=== PATIENT | female | born 2000 | race Hispanic/Latino ===

== ENCOUNTER 2023-02-21 20:57 | Emergency (ER) | payer BC, OTHER ==
--- OUTSIDE RECORDS SUMMARY | 2023-02-21 21:01 | XMS REPORT | Continuity of Care Document ---
:2000 Author Organization [facility] t Address [address] [place] [address] [address] [place] [address] Care Team Providers Name Role Phone Sergey House Primary Care Physician Erna Camarillo Attending Clinician Unavailable Erna Camarillo Attending Clinician Unavailable Maureen Gleason MA Attending Clinician Unavailable Joseph Bueno MD Attending Clinician Letty García MA Attending Clinician Unavailable Kanchan Gonzalez MA Attending Clinician Unavailable SERGEY ROGERS Attending Clinician Unavailable Sergey House Attending Clinician RAJINDER SANCHEZ Attending Clinician Unavailable Mini Patel Attending Clinician Unavailable Erna Camarillo Admitting Clinician Unavailable Payers Payer Name Policy Type Policy Number Effective Date Expiration Date S ource Problems This patient has no known problems. Allergies, Adverse Reactions, Alerts Allergy Allergy Status Severity Reaction(s) Onset Inactive Treating Comm ents Source Name Type Date Date Clinician No Known DA Active U 2020-08 [facility] Drug 10-05 Allergie 00:00: s 00 No Known DA Active U [facility] Drug 09-04 Allergie 00:00: s 00 No Known Drug Active [facility] No Known Drug Active [facility] No Known Drug Active [facility] No Known Drug Active [facility] NO KNOWN Drug Active [facility] ALLERGIE Class ity of S [facility] Social History Social Habit Start Date Stop Date Quantity Comments Source Exposure to 2022-11-16 2022-11-26 Not sure [facility]-CoV-2 00:00:00 16:16:00 [facility] (event) [place] Alcohol intake 2022-11-26 2022-11-26 .14 /d [facility] 00:00:00 00:00:00 [facility] Tobacco use and 2022-10-23 2022-10-23 Smokeless tobacco Un iversity of exposure 00:00:00 00:00:00 non-user [facility] Sex Assigned At [birth year] Universit y of 00:00:00 00:00:00 [facility] Smoking Status Start Date Stop Date Source Never smoked tobacco [facility] Medications Ordered Filled Start Stop Current Ordering Indication Dosage Frequency Signature Comments Components Source Medication Medication Date Date Medication? Clinician (SIG) Name Name pantoprazol Yes [id number] 40mg Take 1 Univers e 40 mg EC 6-20 tablet by ity of tablet 00:00: mouth in [place] 00 the Medical morning. Branch pantoprazol 2022-0 Yes [id number] 40mg Take 1 Univers e 40 mg EC 6-20 tablet by ity of tablet 00:00: mouth in [place] 00 the Medical morning. Branch citalopram 2022-0 Yes [id number] 20mg Take 1 [facility] 20 mg 6-20 tablet by ity of tablet 00:00: mouth in [place] 00 the Medical morning. Branch citalopram 2022-0 Yes [id number] 20mg Take 1 [facility] 20 mg 5-25 tablet by ity of tablet 00:00: mouth in [place] 00 the Medical morning. Branch citalopram 2022-0 Yes [id number] 20mg Take 1 Univers 20 mg 5-25 tablet by ity of tablet 00:00: mouth in [place] 00 the Medical morning. Branch citalopram 2022-0 3- No [id number] 20mg Take 1 Univers 20 mg 5-25 06-20 tablet by ity of tablet 00:00: 00:00 mouth in [place] 00 :00 the Medical morning. Branch pantoprazol 2022-0 Yes [id number] 40mg Take 1 Univers e 40 mg EC 5-24 tablet by ity of tablet 00:00: mouth in [place] 00 the Medical morning. Branch pantoprazol 2022-0 3- No [id number] 40mg Take 1 Univers e 40 mg EC 5-24 06-19 tablet by ity of tablet 00:00: 00:00 mouth in [place] 00 :00 the Medical morning. Branch phentermine 2022-0 Yes [id number] 37.5mg Take 1 Univers 37.5 mg 4-20 capsule by ity of capsule 00:00: mouth [place] 00 every Medical morning. Branch citalopram 2022-0 Yes [id number] 20mg Take 1 [facility] 20 mg 4-20 tablet by ity of tablet 00:00: mouth in [place] 00 the Medical morning. Branch phentermine 3-0 Yes [id number] 37.5mg Take 1 Univers 37.5 mg 4-20 capsule by ity of capsule 00:00: mouth [place] 00 every Medical morning. Branch citalopram 2022-0 Yes [id number] 20mg Take 1 [facility] 20 mg 4-20 tablet by ity of tablet 00:00: mouth in [place] 00 the Medical morning. Branch phentermine Yes [id number] 37.5mg Take 1 Univers 37.5 mg 4-20 capsule by ity of capsule 00:00: mouth [place] 00 every Medical morning. Branch phentermine Yes [id number] 37.5mg Take 1 Univers 37.5 mg 4-20 capsule by ity of capsule 00:00: mouth [place] 00 every Medical morning. Branch phentermine Yes [id number] 37.5mg Take 1 Univers 37.5 mg 4-20 capsule by ity of capsule 00:00: mouth [place] 00 every Medical morning. Branch citalopram 2022- No [id number] 20mg Take 1 Univers 20 mg 4-20 05-23 tablet by ity of tablet 00:00: 00:00 mouth in [place] 00 :00 the Medical morning. Branch pantoprazol Yes [id number] 40mg Take 1 Univers e 40 mg EC 4-18 tablet by ity of tablet 00:00: mouth in [place] 00 the Medical morning. Branch pantoprazol Yes [id number] 40mg Take 1 Univers e 40 mg EC 4-18 tablet by ity of tablet 00:00: mouth in [place] 00 the Medical morning. Branch pantoprazol 2022- No [id number] 40mg Take 1 Univers e 40 mg EC 4-18 05-23 tablet by ity of tablet 00:00: 00:00 mouth in [place] 00 :00 the Medical morning. Branch etonogestre Yes 68mg 68 mg by Un justice L 68 mg 3-30 Subdermal [place]y [place] Medical Branch etonogestre Yes 68mg 68 mg by Un justice L 68 mg 3-30 Subdermal ity of [place] 16:22: [place]. Medical Branch etonogestre Yes 68mg 68 mg by Un justice L 68 mg 3-30 Subdermal ity of [place] 16:22: [place]. Medical Branch etonogestre Yes 68mg 68 mg by Un justice L 68 mg 3-30 Subdermal ity of [place] 16:22: [place]. Medical Branch etonogestre Yes 68mg 68 mg by Un justice L 68 mg 3-30 Subdermal ity of [place] 16:22: [place]. Medical Branch etonogestre Yes 68mg 68 mg by Un justice L 68 mg 3-30 Subdermal ity of [place] 16:22: [place]. Medical Branch etonogestre Yes 68mg 68 mg by Un justice L 68 mg 3-30 Subdermal ity of [place] 16:22: [place]. Medical Branch etonogestre Yes 68mg 68 mg by Un justice L 68 mg 3-30 Subdermal ity of [place] 16:22: [place] now. Medical Branch etonogestre Yes 68mg 68 mg by Un justice L 68 mg 3-30 Subdermal ity of [place] 16:22: [place] now. Medical Branch citalopram Yes [id number] 20mg Take 1 Univers 20 mg 3-30 tablet by ity of tablet 00:00: mouth in [place] 00 the Medical morning. Branch proMETHazin Yes [id number] 12.5mg Take 1 Univers e 12.5 mg 3-30 tablet by ity o f tablet 00:00: mouth [place] 00 every 6 Medical (six) Branch hours as needed for Nausea and Vomiting (N/V). citalopram Yes [id number] 20mg Take 1 Univers 20 mg 3-30 tablet by ity of tablet 00:00: mouth in [place] 00 the Medical morning. Branch proMETHazin 0 Yes [id number] 12.5mg Take 1 Univers e 12.5 mg 3-30 tablet by ity o f tablet 00:00: mouth [place] 00 every 6 Medical (six) Branch hours as needed for Nausea and Vomiting (N/V). citalopram Yes [id number] 20mg Take 1 Univers 20 mg 3-30 tablet by ity of tablet 00:00: mouth in [place] 00 the Medical morning. Branch proMETHazin Yes [id number] 12.5mg Take 1 Univers e 12.5 mg 3-30 tablet by ity o f tablet 00:00: mouth [place] 00 every 6 Medical (six) Branch hours as needed for Nausea and Vomiting (N/V). citalopram 2022-0 Yes [id number] 20mg Take 1 Univers 20 mg 3-30 tablet by ity of tablet 00:00: mouth in [place] 00 the Medical morning. Branch proMETHazin 2022-0 Yes [id number] 12.5mg Take 1 Univers e 12.5 mg 3-30 tablet by ity o f tablet 00:00: mouth [place] 00 every 6 Medical (six) Branch hours as needed for Nausea and Vomiting (N/V). proMETHazin 2022-0 Yes [id number] 12.5mg Take 1 Univers e 12.5 mg 3-30 tablet by ity o f tablet 00:00: mouth [place] 00 every 6 Medical (six) Branch hours as needed for Nausea and Vomiting (N/V). proMETHazin 2022-0 Yes [id number] 12.5mg Take 1 Univers e 12.5 mg 3-30 tablet by ity o f tablet 00:00: mouth [place] 00 every 6 Medical (six) Branch hours as needed for Nausea and Vomiting (N/V). proMETHazin 2022-0 Yes [id number] 12.5mg Take 1 Univers e 12.5 mg 3-30 tablet by ity o f tablet 00:00: mouth [place] 00 every 6 Medical (six) Branch hours as needed for Nausea and Vomiting (N/V). proMETHazin 2022-0 Yes [id number] 12.5mg Take 1 Univers e 12.5 mg 3-30 tablet by ity o f tablet 00:00: mouth [place] 00 every 6 Medical (six) Branch hours as needed for Nausea and Vomiting (N/V). proMETHazin 2022-0 Yes [id number] 12.5mg Take 1 Univers e 12.5 mg 3-30 tablet by ity o f tablet 00:00: mouth [place] 00 every 6 Medical (six) Branch hours as needed for Nausea and Vomiting (N/V). citalopram 2022-0 2022- No [id number] 20mg Take 1 Univers 20 mg 3-30 04-17 tablet by ity of tablet 00:00: 00:00 mouth in [place] 00 :00 the Medical morning. Branch proMETHazin 2022-0 2022- No [id number] 25mg Take 1 Univers e 25 mg 3-30 03-30 tablet by ity of tablet 00:00: 00:00 mouth [place] 00 :00 every 4 Medical (four) Branch hours as needed for Nausea and Vomiting (N/V). citalopram 2022- No [id number] 20mg Take 1 Univers 20 mg 3-30 03-30 tablet by ity of tablet 00:00: 00:00 mouth in [place] 00 :00 the Medical morning. Branch proMETHazin 2022- No [id number] 25mg Take 1 Univers e 25 mg 3-30 03-30 tablet by ity of tablet 00:00: 00:00 mouth [place] 00 :00 every 4 Medical (four) Branch hours as needed for Nausea and Vomiting (N/V). citalopram 2022- No [id number] 20mg Take 1 Univers 20 mg 3-30 03-30 tablet by ity of tablet 00:00: 00:00 mouth in [place] 00 :00 the Medical morning. [place] proMETHazin 2022- No [id number] 25mg Take 1 Univers e 25 mg 3-30 03-30 tablet by ity of tablet 00:00: 00:00 mouth [place] 00 :00 every 4 Medical (four) Branch hours as needed for Nausea and Vomiting (N/V). citalopram 2022- No [id number] 20mg Take 1 Univers 20 mg 3-30 03-30 tablet by ity of tablet 00:00: 00:00 mouth in [place] 00 :00 the Medical morning. Branch citalopram Yes [id number] 10mg Take 1 Univers 10 mg 3-22 tablet by ity of tablet 00:00: mouth in [place] 00 the Medical morning. Branch pantoprazol 0 Yes [id number] 40mg Take 1 Univers e 40 mg EC 3-22 tablet by ity of tablet 00:00: mouth in [place] 00 the Medical morning. Branch citalopram Yes [id number] 10mg Take 1 Univers 10 mg 3-22 tablet by ity of tablet 00:00: mouth in [place] 00 the Medical morning. Branch pantoprazol 2022-0 Yes [id number] 40mg Take 1 Univers e 40 mg EC 3-22 tablet by ity of tablet 00:00: mouth in [place] 00 the Medical morning. Branch pantoprazol 2022-0 Yes [id number] 40mg Take 1 Univers e 40 mg EC 3-22 tablet by ity of tablet 00:00: mouth in [place] 00 the Medical morning. Branch pantoprazol 2022-0 Yes [id number] 40mg Take 1 Univers e 40 mg EC 3-22 tablet by ity of tablet 00:00: mouth in [place] 00 the Medical morning. Branch pantoprazol 2022-0 Yes [id number] 40mg Take 1 Univers e 40 mg EC 3-22 tablet by ity of tablet 00:00: mouth in [place] 00 the Medical morning. Branch pantoprazol 2022-0 2022- No [id number] 40mg Take 1 Univers e 40 mg EC 3-22 04-17 tablet by ity of tablet 00:00: 00:00 mouth in [place] 00 :00 the Medical morning. Branch citalopram 2022-3- No [id number] 10mg Take 1 Univers 10 mg 3-22 03-30 tablet by ity of tablet 00:00: 00:00 mouth in [place] 00 :00 the Medical morning. Branch citalopram 2022-0 2022- No [id number] 10mg Take 1 Univers 10 mg 3-22 03-30 tablet by ity of tablet 00:00: 00:00 mouth in [place] 00 :00 the Medical morning. Branch citalopram 2022-0 2022- No [id number] 10mg Take 1 Univers 10 mg 3-22 03-30 tablet by ity of tablet 00:00: 00:00 mouth in [place] 00 :00 the Medical morning. Branch etonogestre Yes 68mg 68 mg by Un justice L 68 mg 2-24 Subdermal ity of [place] 13[place]19: [place]. Medical Branch etonogestre 0 Yes 68mg 68 mg by Un justice L 68 mg 2-24 Subdermal ity of implant 13:19: route [place] now. Medical Branch etonogestre 0 Yes 68mg 68 mg by Un justice L 68 mg 2-24 Subdermal ity of implant 13:19: route [place] now. Medical Branch etonogestre 0 Yes 68mg 68 mg by Un justice L 68 mg 2-24 Subdermal ity of implant 13:19: route [place] now. Medical Branch phentermine 2022-2022- No 15mg Take 15 mg Univers 15 mg 2-24 -24 by mouth ity of capsule 12:57: 00:00 every [place] 25 :00 morning. Medical Branch phentermine 2022-0 2022- No 15mg Take 15 mg Univers 15 mg 2-24 -24 by mouth ity of capsule 12:57: 00:00 every [place] 25 :00 morning. Medical Branch esomeprazol 2022-0 2022- No 20mg Take 20 mg Univers e (NEXIUM) 2-24 -24 by mouth ity of 20 mg 12:57: 00:00 in the [place] capsule 06 :00 morning Medical and 20 mg Branch in the evening. esomeprazol 2022-2022- No 20mg Take 20 mg Univers e (NEXIUM) 2-24 -24 by mouth ity of 20 mg 12:57: 00:00 in the [place] capsule 06 :00 morning Medical and 20 mg Branch in the evening. phentermine 2022-0 Yes [id number] 37.5mg Take 1 Univers 37.5 mg 2-24 capsule by ity of capsule 00:00: mouth [place] 00 every Medical morning. Branch phentermine 2022-0 Yes [id number] 37.5mg Take 1 Univers 37.5 mg 2-24 capsule by ity of capsule 00:00: mouth [place] 00 every Medical morning. Branch pantoprazol 2022-0 Yes [id number] 40mg Take 1 Univers e 40 mg EC 2-24 tablet by ity of tablet 00:00: mouth in [place] 00 the Medical morning. Branch phentermine 2022-0 Yes [id number] 37.5mg Take 1 Univers 37.5 mg 2-24 capsule by ity of capsule 00:00: mouth [place] 00 every Medical morning. Branch citalopram 2022-0 Yes [id number] 10mg Take 1 Univers 10 mg 2-24 tablet by ity of tablet 00:00: mouth in [place] 00 the Medical morning. Branch pantoprazol 2022-0 Yes [id number] 40mg Take 1 Univers e 40 mg EC 2-24 tablet by ity of tablet 00:00: mouth in [place] 00 the Medical morning. Branch phentermine 2022-0 Yes [id number] 37.5mg Take 1 Univers 37.5 mg 2-24 capsule by ity of capsule 00:00: mouth [place] 00 every Medical morning. Branch citalopram 2022-0 Yes [id number] 10mg Take 1 Univers 10 mg 2-24 tablet by ity of tablet 00:00: mouth in [place] 00 the Medical morning. Branch phentermine 2022-0 Yes [id number] 37.5mg Take 1 Univers 37.5 mg 2-24 capsule by ity of capsule 00:00: mouth [place] 00 every Medical morning. Branch phentermine 2022-0 Yes [id number] 37.5mg Take 1 Univers 37.5 mg 2-24 capsule by ity of capsule 00:00: mouth [place] 00 every Medical morning. Branch phentermine 2022-0 Yes [id number] 37.5mg Take 1 Univers 37.5 mg 2-24 capsule by ity of capsule 00:00: mouth [place] 00 every Medical morning. Branch phentermine 2022-0 Yes [id number] 37.5mg Take 1 Univers 37.5 mg 2-24 capsule by ity of capsule 00:00: mouth [place] 00 every Medical morning. Branch phentermine 2022-0 2022- No [id number] 37.5mg Take 1 Univers 37.5 mg 2-24 04-17 capsule by ity o f capsule 00:00: 00:00 mouth [place] 00 :00 every Medical morning. [place] pantoprazol 2022-0 2022- No [id number] 40mg Take 1 Univers e 40 mg EC 2-24 -22 tablet by ity of tablet 00:00: 00:00 mouth in [place] 00 :00 the Medical morning. Branch citalopram 2022-0 2022- No [id number] 10mg Take 1 Univers 10 mg 2-24 -22 tablet by ity of tablet 00:00: 00:00 mouth in [place] 00 :00 the Medical morning. [place] Immunizations Ordered Immunization Filled Immunization Date Status Commen ts Source Name Name Influenza Virus 2022-09-29 Completed Universit y of Vaccine 00:00:00 [facility] Influenza Virus 2022-09-29 Completed Universit y of Vaccine 00:00:00 [facility] Influenza Virus 2022-09-29 Completed Universit y of Vaccine 00:00:00 [facility] Influenza Virus 2022-09-29 Completed Universit y of Vaccine 00:00:00 [facility] Influenza Virus 2022-09-29 Completed Universit y of Vaccine 00:00:00 [facility] Influenza Virus 2022-09-29 Completed Universit y of Vaccine 00:00:00 [facility] Influenza Virus 2022-09-29 Completed Universit y of Vaccine 00:00:00 [facility] Influenza Virus 2022-09-29 Completed Universit y of Vaccine 00:00:00 [facility] Influenza Virus 2022-09-29 Completed Universit y of Vaccine 00:00:00 [facility] Influenza Virus 2022-09-29 Completed Universit y of Vaccine 00:00:00 [facility] Influenza Virus 2022-09-29 Completed Universit y of Vaccine 00:00:00 [facility] Influenza Virus 2022-09-29 Completed Universit y of Vaccine 00:00:00 [facility] Influenza Virus 2022-09-29 Completed Universit y of Vaccine 00:00:00 [facility] SARS-COV-2 COVID-19 2021-08-27 Completed Unive rsity of MODERNA 0.25ML 00:00:00 [place] Medi jhoana BOOSTER VACCINE Branch SARS-COV-2 COVID-19 2021-08-27 Completed Unive rsity of MODERNA 0.25ML 00:00:00 [place] Medi jhoana BOOSTER VACCINE Branch SARS-COV-2 COVID-19 2021-08-27 Completed Unive rsity of MODERNA 0.25ML 00:00:00 [place] Medi jhoana BOOSTER VACCINE Branch SARS-COV-2 COVID-19 2021-08-27 Completed Unive rsity of MODERNA 0.25ML 00:00:00 [place] Medi jhoana BOOSTER VACCINE Branch SARS-COV-2 COVID-19 2021-08-27 Completed Unive rsity of MODERNA 0.25ML 00:00:00 [place] Medi jhoana BOOSTER VACCINE Branch SARS-COV-2 COVID-19 2021-08-27 Completed Unive rsity of MODERNA 0.25ML 00:00:00 [place] Medi jhoana BOOSTER VACCINE Branch SARS-COV-2 COVID-19 2021-08-27 Completed Unive rsity of MODERNA 0.25ML 00:00:00 [place] Medi jhoana BOOSTER VACCINE Branch SARS-COV-2 COVID-19 2021-08-27 Completed Unive rsity of MODERNA 0.25ML 00:00:00 [place] Medi jhoana BOOSTER VACCINE Branch SARS-COV-2 COVID-19 2021-08-27 Completed Unive rsity of MODERNA 0.25ML 00:00:00 [place] Medi jhoana BOOSTER VACCINE Branch SARS-COV-2 COVID-19 2021-08-27 Completed Unive rsity of MODERNA 0.25ML 00:00:00 [place] Medi jhoana BOOSTER VACCINE Branch SARS-COV-2 COVID-19 2021-08-27 Completed Unive rsity of MODERNA 0.25ML 00:00:00 [place] Medi jhoana BOOSTER VACCINE Branch SARS-COV-2 COVID-19 2021-08-27 Completed Unive rsity of MODERNA 0.25ML 00:00:00 [place] Medi jhoana BOOSTER VACCINE Branch SARS-COV-2 COVID-19 2021-08-27 Completed Unive rsity of MODERNA 0.25ML 00:00:00 [place] Medi jhoana BOOSTER VACCINE Branch SARS-COV-2 COVID-19 2020-12-04 Completed Unive rsity of MODERNA 12+ YRS 00:00:00 [place] Med ical VACCINE Branch SARS-COV-2 COVID-19 2020-12-04 Completed Unive rsity of MODERNA 12+ YRS 00:00:00 [place] Med ical VACCINE Branch SARS-COV-2 COVID-19 2020-12-04 Completed Unive rsity of MODERNA 12+ YRS 00:00:00 [place] Med ical VACCINE Branch SARS-COV-2 COVID-19 2020-12-04 Completed Unive rsity of MODERNA 12+ YRS 00:00:00 [place] Med ical VACCINE Branch SARS-COV-2 COVID-19 2020-12-04 Completed Unive rsity of MODERNA 12+ YRS 00:00:00 [place] Med ical VACCINE Branch SARS-COV-2 COVID-19 2020-12-04 Completed Unive rsity of MODERNA 12+ YRS 00:00:00 [place] Med ical VACCINE Branch SARS-COV-2 COVID-19 2020-12-04 Completed Unive rsity of MODERNA 12+ YRS 00:00:00 [place] Med ical VACCINE Branch SARS-COV-2 COVID-19 2020-12-04 Completed Unive rsity of MODERNA 12+ YRS 00:00:00 [place] Med ical VACCINE Branch SARS-COV-2 COVID-19 2020-12-04 Completed Unive rsity of MODERNA 12+ YRS 00:00:00 [place] Med ical VACCINE Branch SARS-COV-2 COVID-19 2020-12-04 Completed Unive rsity of MODERNA 12+ YRS 00:00:00 [place] Med ical VACCINE Branch SARS-COV-2 COVID-19 2020-12-04 Completed Unive rsity of MODERNA 12+ YRS 00:00:00 [place] Med ical VACCINE Branch SARS-COV-2 COVID-19 2020-12-04 Completed Unive rsity of MODERNA 12+ YRS 00:00:00 [place] Med ical VACCINE Branch SARS-COV-2 COVID-19 2020-12-04 Completed Unive rsity of MODERNA 12+ YRS 00:00:00 [place] Med ical VACCINE Branch SARS-COV-2 COVID-19 2020-11-06 Completed Unive rsity of MODERNA 12+ YRS 00:00:00 [place] Med ical VACCINE Branch SARS-COV-2 COVID-19 2020-11-06 Completed Unive rsity of MODERNA 12+ YRS 00:00:00 [place] Med ical VACCINE Branch SARS-COV-2 COVID-19 2020-11-06 Completed Unive rsity of MODERNA 12+ YRS 00:00:00 [place] Med ical VACCINE Branch SARS-COV-2 COVID-19 2020-11-06 Completed Unive rsity of MODERNA 12+ YRS 00:00:00 [place] Med ical VACCINE Branch SARS-COV-2 COVID-19 2020-11-06 Completed Unive rsity of MODERNA 12+ YRS 00:00:00 [place] Med ical VACCINE Branch SARS-COV-2 COVID-19 2020-11-06 Completed Unive rsity of MODERNA 12+ YRS 00:00:00 [place] Med ical VACCINE Branch SARS-COV-2 COVID-19 2020-11-06 Completed Unive rsity of MODERNA 12+ YRS 00:00:00 [place] Med ical VACCINE Branch SARS-COV-2 COVID-19 2020-11-06 Completed Unive rsity of MODERNA 12+ YRS 00:00:00 [place] Med ical VACCINE Branch SARS-COV-2 COVID-19 2020-11-06 Completed Unive rsity of MODERNA 12+ YRS 00:00:00 [place] Med ical VACCINE Branch SARS-COV-2 COVID-19 2020-11-06 Completed Unive rsity of MODERNA 12+ YRS 00:00:00 [place] Med ical VACCINE Branch SARS-COV-2 COVID-19 2020-11-06 Completed Unive rsity of MODERNA 12+ YRS 00:00:00 [facility] [place] [facility] ical VACCINE Branch SARS-COV-2 COVID-19 2020-11-06 Completed Unive rsity of MODERNA 12+ YRS 00:00:00 [facility] [place] [facility] ical VACCINE Branch SARS-COV-2 COVID-19 2020-11-06 Completed Unive rsity of MODERNA 12+ YRS 00:00:00 [facility] [place] [facility] ical VACCINE Branch Influenza Virus 2020-08-28 Completed Universit y of Vaccine Quad .5 mL IM 00:00:00 [facility] 6+ MO Branch Influenza Virus 2020-08-28 Completed Universit y of Vaccine Quad .5 mL IM 00:00:00 [facility] 6[facility] MO Branch Influenza Virus 2020-08-28 Completed Universit y of Vaccine [place] .5 mL IM 00:00:00 [facility] 6[facility] MO Branch Influenza Virus 2020-08-28 Completed Universit y of Vaccine [place] .5 mL IM 00:00:00 [facility] 6[facility] MO Branch Influenza Virus 2020-08-28 Completed Universit y of Vaccine [place] .5 mL IM 00:00:00 [facility] 6[facility] MO Branch Influenza Virus 2020-08-28 Completed Universit y of Vaccine [place] .5 mL IM 00:00:00 [facility] 6[facility] Branch Influenza Virus 2020-08-28 Completed Universit y of Vaccine [place] .5 mL IM 00:00:00 [facility] 6[facility] Branch Influenza Virus 2020-08-28 Completed Universit y of Vaccine [place] .5 mL IM 00:00:00 [facility] 6[facility] MO Branch Influenza Virus 2020-08-28 Completed Universit y of Vaccine [place] .5 mL IM 00:00:00 [facility] 6[facility] MO Branch Influenza Virus 2020-08-28 Completed Universit y of Vaccine [place] .5 mL IM 00:00:00 [facility] 6[facility] MO Branch Influenza Virus 2020-08-28 Completed Universit y of Vaccine [place] .5 mL IM 00:00:00 [facility] 6[facility] Branch Influenza Virus 2020-08-28 Completed Universit y of Vaccine [place] .5 mL IM 00:00:00 [facility] 6[facility] Branch Influenza Virus 2020-08-28 Completed Universit y of Vaccine [place] .5 mL IM 00:00:00 [facility] 6[facility] Branch Influenza Virus 2017-08-25 Completed Universit y of Vaccine - Whole 00:00:00 [facility] Influenza Virus 2017-08-25 Completed Universit y of Vaccine - Whole 00:00:00 [facility] Influenza Virus 2017-08-25 Completed Universit y of Vaccine - Whole 00:00:00 [facility] Influenza Virus 2017-08-25 Completed [facility] Vaccine - Whole 00:00:00 [facility] Influenza Virus 2017-08-25 Completed [facility] Vaccine - Whole 00:00:00 [facility] Influenza Virus 2017-08-25 Completed [facility] Vaccine - Whole 00:00:00 [facility] Influenza Virus 2017-08-25 Completed [facility] Vaccine - Whole 00:00:00 [facility] Influenza Virus 2017-08-25 Completed [facility] Vaccine - Whole 00:00:00 [facility] Influenza Virus 2017-08-25 Completed [facility] Vaccine - Whole 00:00:00 [facility] Influenza Virus 2017-08-25 Completed [facility] Vaccine - Whole 00:00:00 [facility] Influenza Virus 2017-08-25 Completed [facility] Vaccine - Whole 00:00:00 [facility] Influenza Virus 2017-08-25 Completed [facility] Vaccine - Whole 00:00:00 [facility] Influenza Virus 2017-08-25 Completed [facility] Vaccine - Whole 00:00:00 [facility] HPV 2013-04-11 Completed [facility] of 00:00:00 [facility] HPV 2013-04-11 Completed [facility] of 00:00:00 [facility] HPV 2013-04-11 Completed [facility] of 00:00:00 [facility] HPV 2013-04-11 Completed [facility] of 00:00:00 [facility] HPV 2013-04-11 Completed [facility] of 00:00:00 [facility] HPV 2013-04-11 Completed [facility] of 00:00:00 [facility] HPV 2013-04-11 Completed [facility] of 00:00:00 [facility] HPV 2013-04-11 Completed [facility] of 00:00:00 [facility] HPV 2013-04-11 Completed [facility] of 00:00:00 [facility] HPV 2013-04-11 Completed [facility] of 00:00:00 [facility] HPV 2013-04-11 Completed [facility] of 00:00:00 [facility] HPV 2013-04-11 Completed [facility] of 00:00:00 [facility] HPV 2013-04-11 Completed [facility] of 00:00:00 [facility] Flu Trivalent 2012-09-07 Completed [facility] of 00:00:00 [facility] Flu Trivalent 2012-09-07 Completed [facility] of 00:00:00 [facility] Flu Trivalent 2012-09-07 Completed [facility] of 00:00:00 [facility] Flu Trivalent 2012-09-07 Completed [facility] of 00:00:00 [facility] Flu Trivalent 2012-09-07 Completed [facility] of 00:00:00 [facility] Flu Trivalent 2012-09-07 Completed [facility] of 00:00:00 [facility] Flu Trivalent 2012-09-07 Completed [facility] of 00:00:00 [facility] Flu Trivalent 2012-09-07 Completed [facility] of 00:00:00 [facility] Flu Trivalent 2012-09-07 Completed [facility] of 00:00:00 [facility] Flu Trivalent 2012-09-07 Completed [facility] of 00:00:00 [facility] Flu Trivalent 2012-09-07 Completed [facility] of 00:00:00 [facility] Flu Trivalent 2012-09-07 Completed [facility] of 00:00:00 [facility] Flu Trivalent 2012-09-07 Completed [facility] of 00:00:00 [facility] Influenza Virus 2011-06-30 Completed [facility] Vaccine - Whole 00:00:00 [facility] Influenza Virus 2011-06-30 Completed [facility] Vaccine - Whole 00:00:00 [facility] Influenza Virus 2011-06-30 Completed [facility] Vaccine - Whole 00:00:00 [facility] Influenza Virus 2011-06-30 Completed [facility] Vaccine - Whole 00:00:00 [facility] Influenza Virus 2011-06-30 Completed [facility] Vaccine - Whole 00:00:00 [facility] Influenza Virus 2011-06-30 Completed [facility] Vaccine - Whole 00:00:00 [facility] Influenza Virus 2011-06-30 Completed [facility] Vaccine - Whole 00:00:00 [facility] Influenza Virus 2011-06-30 Completed [facility] Vaccine - Whole 00:00:00 [facility] Influenza Virus 2011-06-30 Completed [facility] of Vaccine - Whole 00:00:00 [facility] Influenza Virus 2011-06-30 Completed [facility] Vaccine - Whole 00:00:00 [facility] Influenza Virus 2011-06-30 Completed [facility] Vaccine - Whole 00:00:00 [facility] Influenza Virus 2011-06-30 Completed [facility] Vaccine - Whole 00:00:00 [facility] Influenza Virus 2011-06-30 Completed [facility] Vaccine - Whole 00:00:00 [facility] Meningococcal 2010-12-17 Completed [facility] Polysaccharide 00:00:00 [facility] (groups A, C, Y and Branc h W-135) conjugate vaccine (MCV4P) TDAP 2010-12-17 Completed [facility] 00:00:00 [facility] Meningococcal 2010-12-17 Completed [facility] Polysaccharide 00:00:00 [place] [facility] (groups A, C, Y and Branc h W-135) conjugate vaccine (MCV4P) TDAP 2010-12-17 Completed [facility] of 00:00:00 [facility] Meningococcal 2010-12-17 Completed [facility] Polysaccharide 00:00:00 [place] [facility] (groups A, C, Y and Branc h W-135) conjugate vaccine (MCV4P) TDAP 2010-12-17 Completed [facility] of 00:00:00 [facility] Meningococcal 2010-12-17 Completed [facility] Polysaccharide 00:00:00 [place] [facility] (groups A, C, Y and Branc h W-135) conjugate vaccine (MCV4P) TDAP 2010-12-17 Completed [facility] 00:00:00 [facility] Meningococcal 2010-12-17 Completed [facility] Polysaccharide 00:00:00 [place] [facility] (groups A, C, Y and Branc h W-135) conjugate vaccine (MCV4P) TDAP 2010-12-17 Completed [facility] 00:00:00 [facility] Meningococcal 2010-12-17 Completed [facility] Polysaccharide 00:00:00 [place] [facility] (groups A, C, Y and Branc h W-135) conjugate vaccine (MCV4P) TDAP 2010-12-17 Completed [facility] 00:00:00 [facility] Meningococcal 2010-12-17 Completed [facility] Polysaccharide 00:00:00 [place] [facility] (groups A, C, Y and Branc h W-135) conjugate vaccine (MCV4P) TDAP 2010-12-17 Completed [facility] 00:00:00 [facility] Meningococcal 2010-12-17 Completed [facility] Polysaccharide 00:00:00 [place] [facility] (groups A, C, Y and Branc h W-135) conjugate vaccine (MCV4P) TDAP 2010-12-17 Completed [facility] 00:00:00 [facility] Meningococcal 2010-12-17 Completed [facility] Polysaccharide 00:00:00 [place] [facility] (groups A, C, Y and Branc h W-135) conjugate vaccine (MCV4P) TDAP 2010-12-17 Completed [facility] 00:00:00 [facility] Meningococcal 2010-12-17 Completed [facility] Polysaccharide 00:00:00 [place] [facility] (groups A, C, Y and Branc h W-135) conjugate vaccine (MCV4P) TDAP 2010-12-17 Completed [facility] of 00:00:00 [facility] Meningococcal 2010-12-17 Completed [facility] Polysaccharide 00:00:00 [place] [facility] (groups A, C, Y and Branc h W-135) conjugate vaccine (MCV4P) TDAP 2010-12-17 Completed [facility] of 00:00:00 [facility] Meningococcal 2010-12-17 Completed [facility] Polysaccharide 00:00:00 [place] [facility] (groups A, C, Y and Branc h W-135) conjugate vaccine (MCV4P) TDAP 2010-12-17 Completed [facility] of 00:00:00 [facility] Meningococcal 2010-12-17 Completed [facility] Polysaccharide 00:00:00 [place] [facility] (groups A, C, Y and Branc h W-135) conjugate vaccine (MCV4P) TDAP 2010-12-17 Completed [facility] of 00:00:00 [facility] Influenza Virus 2010-06-20 Completed [facility] of Vaccine - Whole 00:00:00 [facility] Influenza Virus 2010-06-20 Completed [facility] of Vaccine - Whole 00:00:00 [facility] Influenza Virus 2010-06-20 Completed [facility] of Vaccine - Whole 00:00:00 [facility] Influenza Virus 2010-06-20 Completed [facility] Vaccine - Whole 00:00:00 [facility] Influenza Virus 2010-06-20 Completed [facility] of Vaccine - Whole 00:00:00 [facility] Influenza Virus 2010-06-20 Completed [facility] Vaccine - Whole 00:00:00 [facility] Influenza Virus 2010-06-20 Completed [facility] of Vaccine - Whole 00:00:00 [facility] Influenza Virus 2010-06-20 Completed [facility] of Vaccine - Whole 00:00:00 [facility] Influenza Virus 2010-06-20 Completed [facility] of Vaccine - Whole 00:00:00 [facility] Influenza Virus 2010-06-20 Completed [facility] of Vaccine - Whole 00:00:00 [facility] Influenza Virus 2010-06-20 Completed [facility] Vaccine - Whole 00:00:00 [facility] Influenza Virus 2010-06-20 Completed [facility] of Vaccine - Whole 00:00:00 [facility] Influenza Virus 2010-06-20 Completed [facility] of Vaccine - Whole 00:00:00 [facility] HEPATITIS A 2010-03-04 Completed [facility] of 00:00:00 [facility] HEPATITIS A 2010-03-04 Completed [facility] of 00:00:00 [facility] HEPATITIS A 2010-03-04 Completed [facility] of 00:00:00 [facility] HEPATITIS A 2010-03-04 Completed [facility] of 00:00:00 [facility] HEPATITIS A 2010-03-04 Completed [facility] of 00:00:00 [facility] HEPATITIS A 2010-03-04 Completed [facility] of 00:00:00 [facility] HEPATITIS A 2010-03-04 Completed [facility] of 00:00:00 [facility] HEPATITIS A 2010-03-04 Completed [facility] of 00:00:00 [facility] HEPATITIS A 2010-03-04 Completed [facility] of 00:00:00 [facility] HEPATITIS A 2010-03-04 Completed [facility] of 00:00:00 [facility] HEPATITIS A 2010-03-04 Completed [facility] of 00:00:00 [facility] HEPATITIS A 2010-03-04 Completed [facility] of 00:00:00 [facility] HEPATITIS A 2010-03-04 Completed [facility] of 00:00:00 [facility] Influenza Virus 2009-05-27 Completed [facility] Vaccine - Whole 00:00:00 [facility] Influenza Virus 2009-05-27 Completed [facility] of Vaccine - Whole 00:00:00 [facility] Influenza Virus 2009-05-27 Completed [facility] of Vaccine - Whole 00:00:00 [facility] Influenza Virus 2009-05-27 Completed [facility] of Vaccine - Whole 00:00:00 [facility] Influenza Virus 2009-05-27 Completed [facility] of Vaccine - Whole 00:00:00 [facility] Influenza Virus 2009-05-27 Completed [facility] of Vaccine - Whole 00:00:00 [facility] Influenza Virus 2009-05-27 Completed [facility] of Vaccine - Whole 00:00:00 [facility] Influenza Virus 2009-05-27 Completed [facility] of Vaccine - Whole 00:00:00 [facility] Influenza Virus 2009-05-27 Completed [facility] of Vaccine - Whole 00:00:00 [facility] Influenza Virus 2009-05-27 Completed [facility] of Vaccine - Whole 00:00:00 [facility] Influenza Virus 2009-05-27 Completed [facility] of Vaccine - Whole 00:00:00 [facility] Influenza Virus 2009-05-27 Completed [facility] of Vaccine - Whole 00:00:00 [facility] Influenza Virus 2009-05-27 Completed [facility] of Vaccine - Whole 00:00:00 [facility] Varicella 2009-01-31 Completed [facility] of (varivax)(chicken 00:00:00 [place] [facility] Varicella 2009-01-31 Completed [facility] (varivax)(chicken 00:00:00 [place] [facility] Varicella 2009-01-31 Completed [facility] (varivax)(chicken 00:00:00 [place] [facility] Varicella 2009-01-31 Completed [facility] (varivax)(chicken 00:00:00 [place] [facility] Varicella 2009-01-31 Completed [facility] (varivax)(chicken 00:00:00 [place] [facility] Varicella 2009-01-31 Completed [facility] (varivax)(chicken 00:00:00 [place] [facility] Varicella 2009-01-31 Completed [facility] (varivax)(chicken 00:00:00 [place] [facility] Varicella 2009-01-31 Completed [facility] (varivax)(chicken 00:00:00 [place] [facility] Varicella 2009-01-31 Completed [facility] (varivax)(chicken 00:00:00 [place] [facility] Varicella 2009-01-31 Completed [facility] (varivax)(chicken 00:00:00 [place] [facility] Varicella 2009-01-31 Completed [facility] (varivax)(chicken 00:00:00 [place] [facility] Varicella 2009-01-31 Completed [facility] (varivax)(chicken 00:00:00 [place] [facility] Varicella 2009-01-31 Completed [facility] (varivax)(chicken 00:00:00 [place] [facility] DTaP, Unspecified 2004-01-02 Completed Univers ity of Formulation 00:00:00 [facility] MMR 2004-01-02 Completed [facility] of 00:00:00 [facility] IPV 2004-01-02 Completed [facility] of 00:00:00 [facility] DTaP, Unspecified 2004-01-02 Completed Univers ity of Formulation 00:00:00 [facility] MMR 2004-01-02 Completed [facility] of 00:00:00 [facility] IPV 2004-01-02 Completed [facility] of 00:00:00 [facility] DTaP, Unspecified 2004-01-02 Completed Univers ity of Formulation 00:00:00 [facility] MMR 2004-01-02 Completed [facility] of 00:00:00 [facility] IPV 2004-01-02 Completed [facility] of 00:00:00 [facility] DTaP, Unspecified 2004-01-02 Completed Univers ity of Formulation 00:00:00 [facility] MMR 2004-01-02 Completed [facility] of 00:00:00 [facility] IPV 2004-01-02 Completed [facility] of 00:00:00 [facility] DTaP, Unspecified 2004-01-02 Completed Univers ity of Formulation 00:00:00 [facility] MMR 2004-01-02 Completed [facility] of 00:00:00 [facility] IPV 2004-01-02 Completed [facility] of 00:00:00 [facility] DTaP, Unspecified 2004-01-02 Completed Univers ity of Formulation 00:00:00 [facility] MMR 2004-01-02 Completed [facility] of 00:00:00 [facility] IPV 2004-01-02 Completed [facility] of 00:00:00 [facility] DTaP, Unspecified 2004-01-02 Completed Univers ity of Formulation 00:00:00 [facility] MMR 2004-01-02 Completed [facility] of 00:00:00 [facility] IPV 2004-01-02 Completed [facility] of 00:00:00 [facility] DTaP, Unspecified 2004-01-02 Completed Univers ity of Formulation 00:00:00 [facility] MMR 2004-01-02 Completed [facility] of 00:00:00 [facility] IPV 2004-01-02 Completed [facility] of 00:00:00 [facility] DTaP, Unspecified 2004-01-02 Completed Univers ity of Formulation 00:00:00 [facility] MMR 2004-01-02 Completed [facility] of 00:00:00 [facility] IPV 2004-01-02 Completed [facility] of 00:00:00 [facility] DTaP, Unspecified 2004-01-02 Completed Univers ity of Formulation 00:00:00 [facility] DTaP, Unspecified 2004-01-02 Completed Univers ity of Formulation 00:00:00 [facility] MMR 2004-01-02 Completed [facility] of 00:00:00 [facility] IPV 2004-01-02 Completed [facility] of 00:00:00 [facility] DTaP, Unspecified 2004-01-02 Completed Univers ity of Formulation 00:00:00 [facility] MMR 2004-01-02 Completed [facility] of 00:00:00 [facility] IPV 2004-01-02 Completed [facility] of 00:00:00 [facility] MMR 2004-01-02 Completed [facility] of 00:00:00 [facility] IPV 2004-01-02 Completed [facility] of 00:00:00 [facility] DTaP, Unspecified 2004-01-02 Completed Univers ity of Formulation 00:00:00 [facility] MMR 2004-01-02 Completed [facility] of 00:00:00 [facility] IPV 2004-01-02 Completed [facility] of 00:00:00 [facility] DTaP, Unspecified 2002-04-18 Completed Univers ity of Formulation 00:00:00 [facility] HIB 4 Dose Schedule 2002-04-18 Completed Unive rsity of 00:00:00 [facility] DTaP, Unspecified 2002-04-18 Completed Univers ity of Formulation 00:00:00 [facility] HIB 4 Dose Schedule 2002-04-18 Completed Unive rsity of 00:00:00 [facility] DTaP, Unspecified 2002-04-18 Completed Univers ity of Formulation 00:00:00 [facility] HIB 4 Dose Schedule 2002-04-18 Completed Unive rsity of 00:00:00 [facility] DTaP, Unspecified 2002-04-18 Completed Univers ity of Formulation 00:00:00 [facility] HIB 4 Dose Schedule 2002-04-18 Completed Unive rsity of 00:00:00 [facility] DTaP, Unspecified 2002-04-18 Completed Univers ity of Formulation 00:00:00 [facility] HIB 4 Dose Schedule 2002-04-18 Completed Unive rsity of 00:00:00 [facility] DTaP, Unspecified 2002-04-18 Completed Univers ity of Formulation 00:00:00 [facility] HIB 4 Dose Schedule 2002-04-18 Completed Unive rsity of 00:00:00 [facility] DTaP, Unspecified 2002-04-18 Completed Univers ity of Formulation 00:00:00 [facility] HIB 4 Dose Schedule 2002-04-18 Completed Unive rsity of 00:00:00 [facility] DTaP, Unspecified 2002-04-18 Completed Univers ity of Formulation 00:00:00 [facility] HIB 4 Dose Schedule 2002-04-18 Completed Unive rsity of 00:00:00 [facility] DTaP, Unspecified 2002-04-18 Completed Univers ity of Formulation 00:00:00 [facility] HIB 4 Dose Schedule 2002-04-18 Completed Unive rsity of 00:00:00 [facility] DTaP, Unspecified 2002-04-18 Completed Univers ity of Formulation 00:00:00 [facility] DTaP, Unspecified 2002-04-18 Completed Univers ity of Formulation 00:00:00 [facility] HIB 4 Dose Schedule 2002-04-18 Completed Unive rsity of 00:00:00 [facility] DTaP, Unspecified 2002-04-18 Completed Univers ity of Formulation 00:00:00 [facility] HIB 4 Dose Schedule 2002-04-18 Completed Unive rsity of 00:00:00 [facility] HIB 4 Dose Schedule 2002-04-18 Completed Unive rsity of 00:00:00 [facility] DTaP, Unspecified 2002-04-18 Completed Univers ity of Formulation 00:00:00 [facility] HIB 4 Dose Schedule 2002-04-18 Completed Unive rsity of 00:00:00 [facility] Hep B, Adol or Pedi 1999 Completed Unive rsity of Dosage 00:00:00 [facility] Hep B, Adol or Pedi 1999 Completed Unive rsity of Dosage 00:00:00 [facility] Hep B, Adol or Pedi 1999 Completed Unive rsity of Dosage 00:00:00 [facility] Hep B, Adol or Pedi 1999 Completed Unive rsity of Dosage 00:00:00 [facility] Hep B, Adol or Pedi 1999 Completed Unive rsity of Dosage 00:00:00 [facility] Hep B, Adol or Pedi 1999 Completed Unive rsity of Dosage 00:00:00 [facility] Hep B, Adol or Pedi 1999 Completed Unive rsity of Dosage 00:00:00 [facility] Hep B, Adol or Pedi 1999 Completed Unive rsity of Dosage 00:00:00 [facility] Hep B, Adol or Pedi 1999 Completed Unive rsity of Dosage 00:00:00 [facility] Hep B, Adol or Pedi 1999 Completed Unive rsity of Dosage 00:00:00 [facility] Hep B, Adol or Pedi 1999 Completed Unive rsity of Dosage 00:00:00 [facility] Hep B, Adol or Pedi 1999 Completed Unive rsity of Dosage 00:00:00 [facility] Hep B, Adol or Pedi 1999 Completed Unive rsity of Dosage 00:00:00 [facility] Vital Signs Vital Name Observation Time Observation Value Comments Source Height/Length 2020-01-11 19:48:54 Measured Height/Length 2020-01-11 08:26:07 Measured Weight Dosing 2020-01-11 08:26:07 Height/Length 2020-01-10 08:13:04 Measured Height/Length 2021-09-16 10:30:21 162.56 cm Measured Weight Dosing 2021-09-16 10:30:21 79.83 kg Height/Length 2021-09-16 10:29:29 162.56 cm Measured Weight Dosing 2021-09-16 10:29:29 79.83 kg Height/Length 2021-09-16 10:25:15 162.56 cm Measured Weight Dosing 2021-09-16 10:25:15 79.83 kg Height/Length 2021-09-16 10:24:47 162.56 cm Measured Weight Dosing 2021-09-16 10:24:47 79.83 kg Height/Length 2021-09-16 10:24:43 162.56 cm Measured Weight Dosing 2021-09-16 10:24:43 79.83 kg Height/Length 2021-09-16 10:24:42 162.56 cm Measured Weight Dosing 2021-09-16 10:24:42 79.83 kg Height/Length 2021-09-16 10:24:41 162.56 cm Measured Weight Dosing 2021-09-16 10:24:41 79.83 kg Height/Length 2021-09-16 10:24:26 162.56 cm Measured Weight Dosing 2021-09-16 10:24:26 79.83 kg Height/Length 2021-09-16 10:24:25 162.56 cm Measured Weight Dosing 2021-09-16 10:24:25 79.83 kg Height/Length 2021-09-16 10:23:57 162.56 cm Measured Weight Dosing 2021-09-16 10:23:57 79.83 kg Height/Length 2021-09-16 10:23:54 162.56 cm Measured Weight Dosing 2021-09-16 10:23:54 79.83 kg Height/Length 2021-09-16 10:23:52 162.56 cm Measured Weight Dosing 2021-09-16 10:23:52 79.83 kg Height/Length 2021-09-16 10:23:47 162.56 cm Measured Weight Dosing 2021-09-16 10:23:47 79.83 kg Height/Length 2021-09-16 10:23:21 162.56 cm Measured Weight Dosing 2021-09-16 10:23:21 79.83 kg Height/Length 2021-09-16 10:23:18 162.56 cm Measured Weight Dosing 2021-09-16 10:23:18 79.83 kg Height/Length 2021-09-16 10:23:09 162.56 cm Measured Weight Dosing 2021-09-16 10:23:09 79.83 kg Height/Length 2021-09-16 10:22:47 162.56 cm Measured Weight Dosing 2021-09-16 10:22:47 79.83 kg Systolic blood 2022-11-26 21:22:00 119 mm[Hg] Univer sity of pressure [facility] Diastolic blood 2022-11-26 21:22:00 87 mm[Hg] Unive rsity of pressure [facility] Heart rate 2022-11-26 21:22:00 105 /min [facility] Body temperature 2022-11-26 21:22:00 36.67 [place] [facility] of [facility] Respiratory rate 2022-11-26 21:22:00 18 /min [facility] Body height 2022-11-26 21:22:00 165.1 cm [facility] Body weight 2022-11-26 21:22:00 103.874 kg [facility] BMI 2022-11-26 21:22:00 38.11 kg/m2 [facility] [facility] in 2022-11-26 21:22:00 100 /min [facility] Arterial blood by [facility] Pulse oximetry Branch Systolic blood 2022-10-23 18:37:00 130 mm[Hg] [facility] Diastolic blood 2022-10-23 18:37:00 77 mm[Hg] [facility] Heart rate 2022-10-23 18:37:00 110 /min [facility] Respiratory rate 2022-10-23 18:37:00 18 /min [facility] Body height 2022-10-23 18:37:00 165.1 cm [facility] Body weight 2022-10-23 18:37:00 107.956 kg [facility] BMI 2022-10-23 18:37:00 39.61 kg/m2 [facility] Oxygen saturation in 2022-10-23 18:37:00 100 /min [facility] Arterial blood by [facility] Pulse oximetry Branch Respiratory exam 2020-12-06 09:28:25 normal breath sounds /min 02 Sat by Pulse 2020-12-06 09:28:25 100 /min Oximetry BMI more than 35 2020-12-06 09:28:25 N Body Mass Index 2020-12-06 09:28:25 32.9 Height 2020-12-06 09:28:25 162.56\S\64 Pulse Rate 2020-12-06 09:28:25 99 /min Respiratory Rate 2020-12-06 09:28:25 16 /min Respiratory Depth 2020-12-06 09:28:25 Normal /min Respiratory Effort 2020-12-06 09:28:25 Spontaneous /min Respiratory Pattern 2020-12-06 09:28:25 Normal /min Temperature 2020-12-06 09:28:25 36.4\S\97.5 Weight 2020-12-06 09:28:25 34589.735\S\3072 Head exam ED 2020-12-06 09:28:25 atraumatic Body Mass Index 2020-10-01 15:06:54 32.9 Height 2020-10-01 15:06:54 162.56\S\64 Weight 2020-10-01 15:06:54 38480.735\S\3072 Head exam ED 2020-09-16 16:35:49 atraumatic Respiratory exam 2020-09-16 16:35:49 normal breath sounds /min 02 Sat by Pulse 2020-09-16 16:35:49 100 /min Oximetry BMI more than 35 2020-09-16 16:35:49 N Body Mass Index 2020-09-16 16:35:49 32.9 Height 2020-09-16 16:35:49 162.56\S\64 Pulse Rate 2020-09-16 16:35:49 99 /min Respiratory Rate 2020-09-16 16:35:49 16 /min Respiratory Depth 2020-09-16 16:35:49 Normal /min Respiratory Effort 2020-09-16 16:35:49 Spontaneous /min Respiratory Pattern 2020-09-16 16:35:49 Normal /min Temperature 2020-09-16 16:35:49 36.4\S\97.5 Weight 2020-09-16 16:35:49 17328.735\S\3072 Head exam ED 2020-09-11 14:43:56 atraumatic Respiratory exam 2020-09-11 14:43:56 normal breath sounds /min 02 Sat by Pulse 2020-09-11 14:43:56 100 /min Oximetry BMI more than 35 2020-09-11 14:43:56 N Body Mass Index 2020-09-11 14:43:56 32.9 Height 2020-09-11 14:43:56 162.56\S\64 Pulse Rate 2020-09-11 14:43:56 99 /min Respiratory Rate 2020-09-11 14:43:56 16 /min Respiratory Depth 2020-09-11 14:43:56 Normal /min Respiratory Effort 2020-09-11 14:43:56 Spontaneous /min Respiratory Pattern 2020-09-11 14:43:56 Normal /min Temperature 2020-09-11 14:43:56 36.4\S\97.5 Weight 2020-09-11 14:43:56 71540.735\S\3072 Head exam ED 2020-09-06 13:14:15 atraumatic Respiratory exam 2020-09-06 13:14:15 normal breath sounds /min 02 Sat by Pulse 2020-09-06 13:14:15 98 /min Oximetry BMI more than 35 2020-09-06 13:14:15 N Body Mass Index 2020-09-06 13:14:15 32.9 Height 2020-09-06 13:14:15 162.56\S\64 Pulse Rate 2020-09-06 13:14:15 86 /min Respiratory Rate 2020-09-06 13:14:15 12 /min Respiratory Depth 2020-09-06 13:14:15 Normal /min Respiratory Effort 2020-09-06 13:14:15 Spontaneous /min Respiratory Pattern 2020-09-06 13:14:15 Normal /min Temperature 2020-09-06 13:14:15 36.4\S\97.5 Weight 2020-09-06 13:14:15 92759.735\S\3072 Body Mass Index 2020-09-06 12:00:21 32.9 Height 2020-09-06 12:00:21 162.56\S\64 Weight 2020-09-06 12:00:21 17522.735\S\3072 Head exam ED 2020-09-06 08:50:03 atraumatic Respiratory exam 2020-09-06 08:50:03 normal breath sounds /min 02 Sat by Pulse 2020-09-06 08:50:03 100 /min Oximetry BMI more than 35 2020-09-06 08:50:03 N Body Mass Index 2020-09-06 08:50:03 32.9 Height 2020-09-06 08:50:03 162.56\S\64 Pulse Rate 2020-09-06 08:50:03 84 /min Respiratory Rate 2020-09-06 08:50:03 10 /min Respiratory Depth 2020-09-06 08:50:03 Normal /min Respiratory Effort 2020-09-06 08:50:03 Spontaneous /min Respiratory Pattern 2020-09-06 08:50:03 Normal /min Temperature 2020-09-06 08:50:03 36.4\S\97.5 Weight 2020-09-06 08:50:03 12105.735\S\3072 Head exam ED 2020-09-06 06:40:08 atraumatic 02 Sat by Pulse 2020-09-06 06:40:08 100 /min Oximetry BMI more than 35 2020-09-06 06:40:08 N Body Mass Index 2020-09-06 06:40:08 32.9 Height 2020-09-06 06:40:08 162.56\S\64 Pulse Rate 2020-09-06 06:40:08 79 /min Respiratory Rate 2020-09-06 06:40:08 18 /min Temperature 2020-09-06 06:40:08 36.4\S\97.5 Weight 2020-09-06 06:40:08 05237.735\S\3072 Body Mass Index 2020-09-06 06:11:35 32.9 Height 2020-09-06 06:11:35 162.56\S\64 Weight 2020-09-06 06:11:35 56625.735\S\3072 WEIGHT 2020-09-06 06:11:00 87.727186 kg HEIGHT 2020-09-06 06:11:00 162.56 cm Body Mass Index 2020-09-05 00:14:49 32.9 Height 2020-09-05 00:14:49 162.56\S\64 Weight 2020-09-05 00:14:49 04725.735\S\3072 Body Mass Index 2020-09-04 14:21:48 32.9 Height 2020-09-04 14:21:48 162.56\S\64 Weight 2020-09-04 14:21:48 02586.735\S\3072 WEIGHT 2020-09-04 14:21:00 87.894544 kg HEIGHT 2020-09-04 14:21:00 162.56 cm Procedures This patient has no known procedures. Encounters Start End Encounter Admission Attending Care Care Encounter Source Date/Time Date/Time Type Type Clinicians Facility Department ID 2021-09-16 Inpatient 3 [facility] TRICE [id number] [address] 10:23:19 [facility] [id number] [facility] 2021-09-[address] [place] [id number] 10:22:06 [id number] [facility] 2021-08-08 Inpatient [facility] [id number] [facility] 07:00:00 [facility] 2019-12-29 Inpatient [facility] TRICE [id number] S t. 14:48:00 [facility] 2023-02-16 2023-02-16 RefJAMEY Francis 1.2.840.114 [id number] Univers 00:00:00 00:00:00 Maureen BOOKER [id number] [facility] [id number] Michael as [id number] [place] [address] Branch 2023-02-15 2023-02-15 IMANI Edmonds 1.2.840.114 [id number] Univers 00:00:00 00:00:00 Joseph WHITTEN [id number] i ty of [place] [id number] [address] 2023-01-19 2023-01-19 [facility] 1.2.840.114 [id number] Univers 00:00:00 00:00:00 Joseph WHITTEN [id number] i ty [id number] [id number] [address] 2023-01-19 2023-01-19 RefJAMEY Rosales 1.2.840.114 [id number] Univers 00:00:00 00:00:00 Letty Foster JHONY 350.1.13.10 i ty of [facility] 4.2.7.2.686 Michael as [id number] [address] 2022-12-14 2022-12-14 [facility] 1.2.840.114 [id number] Univers 00:00:00 00:00:00 Joseph WHITTEN [id number] i ty [id number] [id number] [address] 2022-12-14 2022-12-14 JAMEY Pascual 1.2.840.114 [id number] Univers 00:00:00 00:00:00 Kanchan BOOKER 350.1.13.10 it y of [address]686 Michael as [id number] [address] 2022-12-04 2022-12-04 [facility] [id number] Univers 13:00:00 13:00:00 SERGEY [facility] 2022-11-26 2022-11-26 Outpatient [facility] [id number] Univers 16:00:00 16:45:41 SERGEY [facility] 2022-11-26 2022-11-26 [facility] 1.2.840.114 [id number] Univers 16:00:00 16:45:41 Visit Sergey WHITTEN 350.1.13.10 i ty [place] [id number] Mt dical NAL [address] [place] [address] 2022-11-18 2022-11-18 Refill [facility] 1.2.840.114 [id number] Univers 00:00:00 00:00:00 Sergey WHITTEN 350.1.13.10 i ty of [place] [id number] Mt dical NAL [address] [place] [address] 2022-11-18 2022-11-18 Telephone [facility] [id number] [facility] 00:00:00 00:00:00 Sergey WHITTEN 350.1.13.10 i ty [facility] [id number] [id number] Mt dical NAL [address] [place] [address] 2022-10-30 2022-10-30 Outpatient R [facility] [id number] Univers 13:30:00 13:30:00 SERGEY [facility] 2022-10-23 2022-10-23 Office [facility] 1.2.840.114 [id number] Univers 12:30:00 13:28:18 Visit Sergey WHITTEN 350.1.13.10 i ty of [facility]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
[2023-02-21] MEDS ORDERED: NA CHLORIDE 0.9% 1,000 ML ONE (21:35)
[2023-02-21] MEDS ORDERED: FENTANYL CITR 100 MCG/2 ML ONE (21:35)
[2023-02-21 21:39] LABS: Absolute Lymphocytes (CBC) 2.6 K/uL (0.7-4.9); Hematocrit 32.5 % (36.0-45.0); Lymphocytes % 25.3 % (15.3-44.8); MCV 73.1 fL (80-100); MPV 8.4 fL (7.6-11.3); RBC Red Blood Cell Count 4.45 M/uL (3.86-4.86)
[2023-02-21 21:52] LABS: Potassium 3.9 mEq/L (3.5-5.1)
--- NOTE | 2023-02-21 22:03 | RAD REPORT ---
EXAM DESCRIPTION: RAD - Wrist Left 3 View - 02/21/2023 9:54 pm CLINICAL HISTORY: PAIN Pain COMPARISON: No comparisons FINDINGS: No fracture or dislocation seen. Moderate soft tissue swelling.
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
[2023-02-21 22:05] LABS: Specific Gravity > 1.030 (1.005-1.030); Urine Bacteria None Seen /HPF (<20); Urine Bilirubin NEGATIVE (Negative); Urine Blood Negative (Negative); Urine Clarity Clear (Clear); Urine Color Yellow (Yellow); Urine Glucose NEGATIVE (Negative); Urine Mucus Slight /HPF (None Seen); Urine Protein TRACE (Negative); Urine RBC <5 /HPF (None Seen); Urine Urobilinogen 1+ (Normal); Urine pH 5.5 (5.0-7.0)
[2023-02-21 22:06] LABS: Specific Gravity > 1.030 (1.005-1.030)
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
[2023-02-21] MEDS ORDERED: KETOROLAC 30 MG/ML INJ ONE (23:25)
[2023-02-21] MEDS ORDERED: CYCLOBENZAPRINE 10 MG TAB ONE (23:25)
[2023-02-21 23:41] VITALS: TEMP 98.4; O2SAT 100
[2023-02-21 23:52] VITALS: BP 101/56
== END 2023-02-21 23:32 | disposition home or self-care (01) ==
LOC: ER 20:57
DX: S06.0X9A Concussion with loss of consciousness of unspecified duration, initial encounter (principal); M54.2 Cervicalgia; M25.532 Pain in left wrist; M25.572 Pain in left ankle and joints of left foot; V49.49XA Driver injured in collision with other motor vehicles in traffic accident, initial encounter; F32.A Depression, unspecified
CPT/HCPCS: 96361; 85025; 81001; 80048; 36415; 86900; 86850; 81025; 86901; 70450; 72125; 71260; 74177; 73110; 73610; 96375; 96374; 99285; Q9967; J3010; J7030